=== PATIENT | female | born 1995 | race African-American/Black ===

== ENCOUNTER 2017-03-09 19:42 | Emergency (ER) | payer SELFPAY ==
[2017-03-09] MEDS ORDERED: NO MEDICATIONS (19:58)
== END 2017-03-09 21:32 | disposition home or self-care (01) ==
LOC: SED 19:42
DX: S91.011A Laceration without foreign body, right ankle, initial encounter (principal); Z23 Encounter for immunization; X58.XXXA Exposure to other specified factors, initial encounter; Y92.009 Unspecified place in unspecified non-institutional (private) residence as the place of occurrence of the external cause
CPT/HCPCS: 12001; 90471; 90715; 99283